=== PATIENT | male | born 1960 | race African-American/Black ===

== ENCOUNTER 2017-04-09 02:46 | Emergency (ER) | payer OTHER ==
[~2017-04-09] VITALS: Ht 172.7 cm; Wt 93.9 kg
--- NOTE | 2017-04-09 02:49 | NUR ---
pt [address], found lying asleep on bench, +etoh intoxication. pt lethargic, strong etoh odor, easily arousable w/ painful stimuli, resp even & unlabored, hypoxice w/ O2 sat 88% on RA, placed on 2 l/min O2 via NC, pulse-ox w/ cardiac monitoring. IVHL established, labs drawn & sent. Dr. Gallagher at bedside for eval.
[2017-04-09] MEDS ORDERED: IV NS 0.9% 1,000 ML BAG IV ONE (03:00)
[2017-04-09] MEDS ORDERED: IV SET PRIMARY 1 EA INFUS.SET MC ONE (03:02)
[2017-04-09] MEDS ORDERED: IV NS 0.9% 1,000 ML ONE (03:02)
--- NOTE | 2017-04-09 03:21 | NUR ---
pt continues to sleep in bed w/ resp even & unlabored, on continuous O2, pulse-ox w/ cardiac monitoring. HOB elevated, bed low to ground w/ siderails up for safety.
--- NOTE | 2017-04-09 04:04 | NUR ---
No change in pt status. Resting in bed w/ nad noted.
--- NOTE | 2017-04-09 05:19 | NUR ---
pt easily arousable, falling back to sleep, slurring words, unable to sit up on own, lying in bed w/ siderails up, bed low to ground, on continuous monitoring.
--- NOTE | 2017-04-09 06:08 | NUR ---
Pt pulled out IVHL. IV removed. Catheter intact and site benign. Pressure and 4x4 applied to site. No bleeding noted.
--- NOTE | 2017-04-09 07:42 | NUR ---
PATIENT AMBULATES TO URINATE, GAIT STABLE.
--- NOTE | 2017-04-09 08:58 | NUR ---
Patient is resting comfortably in bed with eyes closed. Easily aroused. VSS
--- NOTE | 2017-04-09 11:05 | NUR ---
PATIENT AMBULATES TO ER BED 14, GAIT IS STABLE. [id number],
[2017-04-09 11:17] VITALS: BP 137/88
--- NOTE | 2017-04-09 11:17 | NUR ---
Patient discharged to home in stable condition. Written and verbal after care instructions given. Patient verbalizes understanding of instruction.
== END 2017-04-09 11:18 | disposition home or self-care (01) ==
LOC: ER 02:48
DX: F10.129 Alcohol abuse with intoxication, unspecified (principal); R79.89 Other specified abnormal findings of blood chemistry; Y90.8 Blood alcohol level of 240 mg/100 ml or more
CPT/HCPCS: 36415; 82962-TC; A4606; G0480; J7030; Z7610